=== PATIENT | male | born 1945 | race American Indian/Alaskan Native ===

== ENCOUNTER 2020-08-29 10:39 | Emergency (ER) | payer MEDICARE ==
--- NOTE | 2020-08-29 11:34 | Emergency Department Report ---
HPI - General Chief Complaint: Pain General Time Seen by Provider: 08/29/20 11:18 - HPI HPI: Room 17 The patient is a 74-year-old male present with a chief complaint of cough. Patient was reportedly at [facility] and was sent to the ED for evaluation of his cough. Patient admits to cough has been productive of white sputum for the past day and a half. Patient denies history of fever or shortness of breath. Patient denies loss of sense of taste or smell. ED Past Medical Hx - Past Medical History Previous Medical History?: Yes - Surgical History Past Surgical History?: No - Family History Family history: no significant - Social History Smoking Status: Former Smoker (None x5 years) Substance Use Type: None (Denies illicit drug use), Alcohol (Occasional) - Medications Home Medications: Home Medications Medication Instructions Recorded Confirmed Last Taken Type Azithromycin [Zithromax Z-EDIL] 0 mg PO DAILY #6 tab 08/29/20 Unknown Rx Benzonatate [Tessalon Perles] 100 mg PO Q8HR #30 capsule 08/29/20 Unknown Rx ED Review of Systems ROS: Stated complaint: COUGH Other details as noted in HPI Constitutional: denies: fever Eyes: denies: eye pain ENT: denies: throat pain Respiratory: cough Cardiovascular: denies: chest pain Endocrine: no symptoms reported Gastrointestinal: denies: abdominal pain Musculoskeletal: denies: back pain Neurological: denies: headache Physical Exam - Physical Exam Physical Exam: GENERAL: The patient is well-developed well-nourished male lying on stretcher not appearing to be in acute distress. [] HEENT: Normocephalic. Atraumatic. Extraocular motions are intact. Patient has moist mucous membranes. NECK: Supple. No meningitic signs are noted. There is no adenopathy noted. CHEST/LUNGS: Clear to auscultation. There is no respiratory distress noted. HEART/CARDIOVASCULAR: Regular. There is no tachycardia. There is no gallop rub or murmur. ABDOMEN: Abdomen is soft, nontender. Patient has normal bowel sounds. There is no abdominal distention. SKIN: There is no rash. There is no edema. There is no diaphoresis. NEURO: The patient is awake, alert, and oriented. The patient is cooperative. The patient has no focal neurologic deficits. The patient has normal speech. GCS 15 MUSCULOSKELETAL: There is no evidence of acute injury. ED Medical Decision Making - Lab Data Result diagrams: 08/29/20 12:33 08/29/20 12:33 Laboratory Tests 08/29/20 08/29/20 12:33 12:33 WBC 6.3 RBC 3.98 Hgb 13.0 Hct 39.0 MCV 98 H MCH 33 H MCHC 33 RDW 13.6 Plt Count 303 Lymph % (Auto) 17.3 Josephine % (Auto) 7.8 H Eos % (Auto) 5.3 H Baso % (Auto) 0.8 Lymph # (Auto) 1.1 L Josephine # (Auto) 0.5 Eos # (Auto) 0.3 Baso # (Auto) 0.1 Seg Neutrophils % 68.8 Seg Neutrophils # 4.3 Sodium 140 Potassium 3.9 Chloride 100.2 Carbon Dioxide 33 H Anion Gap 11 BUN 11 Creatinine 0.9 Estimated GFR > 60 BUN/Creatinine Ratio 12 Glucose 84 Calcium 9.3 - Radiology Data Radiology results: report reviewed (Chest x-ray), image reviewed (Chest x-ray) interpreted by me: Chest x-ray-no definite focal infiltrates, no pneumothorax. No foreign body seen [facility] [address] [place] [address] XRay Report Signed Patient: KATHY NESBITT MR#: [id number] 87 : 1945 Acct:[id number] Age/Sex: 74 / M ADM Date: 08/29/20 Loc: ED Attending Dr: Ordering Physician: ANGELES TORRES MD Date of Service: 08/29/20 Procedure(s): XR chest routine 2V Accession Number(s): [id number] cc: ANGELES TORRES MD Fluoro Time In Minutes: CHEST 2 VIEWS INDICATION / CLINICAL INFORMATION: Cough. COMPARISON: None available. FINDINGS: SUPPORT DEVICES: None. HEART / MEDIASTINUM: No significant abnormality. LUNGS / PLEURA: Lung volumes are reduced without an additional significant pulmonary abnormality. No significant pleural effusion. No pneumothorax. ADDITIONAL FINDINGS: No significant additional findings. IM PRESSION: 1. No acute abnormality of the chest. Signer Name: Jerome Hoffman MD Signed: 08/29/2020 11:49 AM Workstation Name: [id number] Transcribed By: ELISA Dictated By: Jerome Hoffman MD Electronically Authenticated By: Jerome Hoffman MD Signed Date/Time: 08/29/20 114 DD/ 47 TD/TT: Print Cancel - Differential Diagnosis Bronchitis, pneumonia Critical care attestation.: If time is entered above; I have spent that time in minutes in the direct care of this critically ill patient, excluding procedure time. ED Disposition Clinical Impression: Acute bronchitis Disposition: [id number]/TX-70 ANOTHER TYPE HLTHCARE Is pt being admited?: No Does the pt Need Aspirin: No Condition: Stable Instructions: Acute Bronchitis (ED), Acute Bronchitis, Adult, [id number] Additional Instructions: Return to the emergency department should you develop worsening symptoms, inability to tolerate food or liquids, high fever or any other concerns Prescriptions: Benzonatate [Tessalon Perles] 100 mg PO Q8HR #30 capsule Azithromycin [Zithromax Z-EDIL] 0 mg PO DAILY #6 tab Referrals: ANGELLA ARENAS [Other] - 3-5 Days Time of Disposition: 14:26
--- NOTE | 2020-08-29 11:53 | XRay Report ---
CHEST 2 VIEWS INDICATION / CLINICAL INFORMATION: Cough. COMPARISON: None available. FINDINGS: SUPPORT DEVICES: None. HEART / MEDIASTINUM: No significant abnormality. LUNGS / PLEURA: Lung volumes are reduced without an additional significant pulmonary abnormality. No significant pleural effusion. No pneumothorax. ADDITIONAL FINDINGS: No significant additional findings. IMPRESSION: 1. No acute abnormality of the chest. Signer Name: Jerome Hoffman MD Signed: 08/29/2020 11:49 AM Workstation Name: [id number]
[2020-08-29 12:04] VITALS: BP 134/76
[2020-08-29 13:02] LABS: BUN/Creatinine Ratio 12; Blood Urea Nitrogen 11 mg/dL (9-20); Calcium 9.3 mg/dL (8.4-10.2); Hemolysis Index 10
[2020-08-29 13:10] LABS: Basophils # (Auto) 0.1 K/mm3 (0.0-0.1); Basophils % (Auto) 0.8 % (0.0-1.8); Eosinophils # (Auto) 0.3 K/mm3 (0.0-0.4); Eosinophils % (Auto) 5.3 % (0.0-4.3); Lymphocytes # (Auto) 1.1 K/mm3 (1.2-5.4); Lymphocytes % (Auto) 17.3 % (13.4-35.0); Mean Corpuscular HGB Conc 33 % (32-34); Mean Corpuscular Volume 98 fl (84-94); Monocytes # (Auto) 0.5 K/mm3 (0.0-0.8); Monocytes % (Auto) 7.8 % (0.0-7.3); Platelet Count 303 K/mm3 (140-440); Red Blood Count 3.98 M/mm3 (3.65-5.03); Red Cell Distribution Width 13.6 % (13.2-15.2)
== END 2020-08-29 19:54 | disposition other institution (70) ==
LOC: ED 10:39
DX: J20.9 Acute bronchitis, unspecified (principal); Z87.891 Personal history of nicotine dependence; Z79.2 Long term (current) use of antibiotics; Z79.899 Other long term (current) drug therapy
CPT/HCPCS: 36415; 71046; 80048; 85025